=== PATIENT | female | born 1995 | race African-American/Black ===

== ENCOUNTER 2017-09-21 14:40 | Emergency (ER) | payer OTHER, SELFPAY ==
[2017-09-21 17:57] LABS: Bilirubin Negative (Negative); Blood, Urine Trace (Negative); Clarity CLEAR (Clear); Glucose, Urine (Dipstick) Negative (Negative); Leukocyte Negative (Negative); Nitrite Negative (Negative); Protein, Urine (Dipstick) Negative (Neg-Trace); Specific Gravity, Urine 1.017 (1.002-1.036); Urobilinogen 0.2 mg/dL (0.2-1.0); pH, Urine 7.5 (5.0-9.0)
[2017-09-21 17:59] LABS: Pregnancy Test - Urine (BHCG) Negative (Negative); Pregu Control Background? CLEAR/WHITE (CLR/WHITE); Pregu Control Bar Appear? YES (CONTROL BAR); Specific Gravity 1.017 (1.002-1.036)
[2017-09-21 18:00] LABS: Bacteria/HPF None Seen HPF (None Seen); Hyaline Casts/LPF 0-3 HYALINE CAST LPF (0-3 Hyaline); RBC/HPF 21-50 HPF (0-3); Squamous Epithelial 0-3 HPF (0-3); WBC/HPF 0-3 HPF (0-3)
[2017-09-21] MEDS ORDERED: Ondansetron ODT 8 MG TAB ONE (18:04)
[2017-09-21] MEDS ORDERED: Ibuprofen 800 MG TAB ONE (18:04)
== END 2017-09-21 19:05 | disposition home or self-care (01) ==
LOC: ERS 14:40
DX: R51 Headache (principal); R11.2 Nausea with vomiting, unspecified
CPT/HCPCS: 81003; 81015; 81025; 99284